=== PATIENT | male | born 1985 | race Two or more races ===

== ENCOUNTER 2023-09-09 18:27 | Emergency (ER) | payer OTHER ==
[~2023-09-09] VITALS: Ht 167.6 cm; Wt 78.0 kg
[2023-09-09] MEDS ORDERED: KETOROLAC TROMETHAMINE 30 MG VIAL IM STA (20:14)
== END 2023-09-09 20:24 | disposition home or self-care (01) ==
LOC: ER 18:27
DX: M25.572 Pain in left ankle and joints of left foot (principal); M79.672 Pain in left foot

== ENCOUNTER 2024-04-21 08:54 | Emergency (ER) | payer OTHER ==
[~2024-04-21] VITALS: Ht 167.6 cm; Wt 72.6 kg
[2024-04-21] MEDS ORDERED: TETANUS & DIPHTHERIA TOX,ADULT 0.5 ML VIAL IM ONE (09:15)
== END 2024-04-21 09:44 | disposition home or self-care (01) ==
LOC: ER 08:56
DX: S51.021A Laceration with foreign body of right elbow, initial encounter (principal); W25.XXXA Contact with sharp glass, initial encounter; Y93.89 Activity, other specified; Y92.018 Other place in single-family (private) house as the place of occurrence of the external cause

== ENCOUNTER 2024-05-09 14:22 | Emergency (ER) | payer OTHER ==
[~2024-05-09] VITALS: Ht 167.6 cm; Wt 74.4 kg
== END 2024-05-09 17:26 | disposition home or self-care (01) ==
LOC: ER 14:24
DX: Z48.02 Encounter for removal of sutures (principal)